=== PATIENT | female | born 1995 | race Caucasian/White ===

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

== ENCOUNTER 2017-06-15 19:32 | Emergency (ER) | payer OTHER ==
[2017-06-15 22:10] VITALS: BP 122/79
--- NOTE | 2017-06-16 01:48 | ED ---
Laceration/Wound HPI - HPI Summary HPI Summary: Patient presents to the ED with a laceration to the left thumb approximately 1 hour prior to arrival with a kitchen knife while cutting yams. Last tetanus 6 years ago. The area is approx 1.5cm length, .4cm deep and no width. Bleeding is controlled at arrival. Denies numness, tingling or temperature changes. The area has slight discoloration. Denies blood thinners. - History of Current Complaint Stated Complaint: LEFT THUMB LAC Time Seen by Provider: 06/15/17 20:02 Hx Obtained From: Patient Mechanism of Injury: Sharp/Blunt Trauma Onset/Duration: Sudden Onset Alleviating: Compression Timing: Constant Onset Severity: Mild Current Severity: None Pain Intensity: 0 Pain Scale Used: 0-10 Numeric Associated Signs & Symptoms: Negative - Allergy/Home Medications Allergies/Adverse Reactions: Allergies Allergy/AdvReac Type Severity Reaction Status Date / Time No Known Allergies Allergy Verified 06/15/17 20:31 PMH/Surg Hx/FS Hx/Imm Hx Previously Healthy: Yes Endocrine/Hematology History: Reports: Hx Diabetes - type I Sensory History: Denies: Hx Legally Blind Opthamlomology History: Denies: Hx Legally Blind - Immunization History Hx Pertussis Vaccination: No Immunizations Up to Date: Unable to Obtain/Confirm Infectious Disease History: No Infectious Disease History: Denies: Traveled Outside the [place] in Last 30 Days - Family History Known Family History: Positive: Cardiac Disease, Diabetes Negative: Hypertension - Social History Occupation: Student Lives: With Family Alcohol Use: Occasionally Hx Substance Use: No Substance Use Type: Reports: None Hx Tobacco Use: No Smoking Status (MU): Never Smoked Tobacco Review of Systems Constitutional: Negative Eyes: Negative Cardiovascular: Negative Respiratory: Negative Positive: no symptoms reported, see HPI Musculoskeletal: Negative Positive: Other - laceration to the distal tip of the left thumb Neurological: Negative Psychological: Normal All Other Systems Reviewed And Are Negative: Yes Physical Exam Triage Information Reviewed: Yes Vital Signs On Initial Exam: Initial Vitals Temp Pulse Resp BP Pulse Ox 97.8 F 112 16 133/89 99 06/15/17 19:35 06/15/17 19:35 06/15/17 19:35 06/15/17 19:35 06/15/17 19:35 Vital Signs Reviewed: Yes Appearance: Positive: Well-Appearing, Well-Nourished Skin: Positive: Warm, Skin Color Reflects Adequate Perfusion, Other - laceration to the distal tip of the left thumb Head/Face: Positive: Normal Head/Face Inspection Eyes: Positive: EOMI, XIOMARA, Conjunctiva Clear Neck: Positive: Supple, No Lymphadenopathy Respiratory/Lung Sounds: Positive: Clear to Auscultation, Breath Sounds Present Cardiovascular: Positive: Normal, RRR, Pulses are Symmetrical in both Upper and Lower Extremities Musculoskeletal: Positive: Normal, Strength/ROM Intact Neurological: Positive: Normal, Sensory/Motor Intact, Alert, Oriented to Person Place, Time Psychiatric: Positive: Normal AVPU Assessment: Alert - Enriqueta Coma Scale Coma Scale Total: 15 Diagnostics - Vital Signs Vital Signs Temp Pulse Resp BP Pulse Ox 06/15/17 22:09 98.1 F 70 18 122/79 100 06/15/17 19:35 97.8 F 112 16 133/89 99 - Laboratory Lab Statement: Any lab studies that have been ordered have been reviewed, and results considered in the medical decision making process. Laceration Repair Course/Dx - Course Course Of Treatment: laceration to the distal tip of the left thumb. discussed treatment options. Applied adhesive glue to the thumb - 2 layers. steri strips placed. Tetanus not updated d/t recent administration 6 years ago. Bandage wrapped. OK for discharge. - Differential Dx Differental Diagnoses: Laceration - Clinical Impression Provider Diagnoses: Laceration of thumb with damage to nail Discharge - Discharge Plan Condition: Stable Disposition: HOME Patient Education Materials: Skin Adhesive Care (ED), Steristrips (ED) Referrals: Non Staff,Doctor [Primary Care Provider] - Additional Instructions: Continue with steri strips for at least 5 days Keep the area covered x 2-3 days, then leave open to air As the steri strips start to fall apart, you may apply more
== END 2017-06-15 22:09 | disposition home or self-care (01) ==
LOC: ED 19:32
DX: S61.012A Laceration without foreign body of left thumb without damage to nail, initial encounter (principal); W26.0XXA Contact with knife, initial encounter; Y93.G1 Activity, food preparation and clean up; Y92.000 Kitchen of unspecified non-institutional (private) residence as the place of occurrence of the external cause; E10.8 Type 1 diabetes mellitus with unspecified complications
CPT/HCPCS: 99281

== ENCOUNTER 2018-12-24 01:14 | Emergency (ER) | payer OTHER ==
[2018-12-24 01:54] LABS: Urine Appearance Cloudy; Urine Bacteria Absent (Absent); Urine Bilirubin Negative (Negative); Urine Blood 3+ (Negative); Urine Glucose Negative (Negative); Urine Ketones Negative (Negative); Urine Nitrite Negative (Negative); Urine Protein 2+(100 mg/dL) (Negative); Urine Red Blood Cell Absent (Absent); Urine Specific Gravity 1.001 (1.010-1.030); Urine Urobilinogen Negative (Negative); Urine White Blood Cell 3+(>20/hpf) (Absent)
[2018-12-24] MEDS ORDERED: Acetaminophen TAB* 325 MG PO ONE (01:55)
[2018-12-24 01:57] LABS: Urine Color Red
[2018-12-24] MEDS ORDERED: Nitrofurantoin Macrocrystals* 100 MG CAP PO ONE (02:03)
[2018-12-24] MEDS ORDERED: Phenazopyridine TAB* 100 MG PO ONE (02:03)
--- NOTE | 2018-12-24 02:04 | ED ---
GI/ HPI - HPI Summary HPI Summary: 23-year-old female presents with dysuria hematuria today. She states she has history of the UTIs but has never had hematuria. No flank pain. No fevers. No nausea and vomiting. Denies any abnormal vaginal discharge. She is not blood thinners. She is a diabetic type I but her sugars have been normal. She states that she has had some clots in her urine. She admits to urgency and frequency. States feels similar to when she had UTIs the past. Has not had any UTI in a year. - History of Current Complaint Chief Complaint: EDUrogenitalProblems Time Seen by Provider: 12/24/18 01:31 Stated Complaint: PEEING BLOOD PER PT. Pain Intensity: 2 - Allergy/Home Medications Allergies/Adverse Reactions: Allergies Allergy/AdvReac Type Severity Reaction Status Date / Time No Known Allergies Allergy Verified 12/24/18 01:20 Home Medications: Home Medications Insulin ASPART (NF) [Novolog (NF)] 100 unit SC QID 12/24/18 [History Confirmed 12/24/18] Insulin Glargine,Hum.rec.anlog [Basaglar Kwikpen U-100] 28 units SUBCUT BEDTIME 12/24/18 [History Confirmed 12/24/18] PMH/Surg Hx/FS Hx/Imm Hx Endocrine/Hematology History: Reports: Hx Diabetes - type I Respiratory History: Denies: Hx Asthma Sensory History: Denies: Hx Legally Blind Opthamlomology History: Denies: Hx Legally Blind Infectious Disease History: No Infectious Disease History: Denies: Traveled Outside the [place] in Last 30 Days - Family History Known Family History: Positive: Cardiac Disease, Diabetes Negative: Hypertension - Social History Alcohol Use: Occasionally Hx Substance Use: No Substance Use Type: Reports: None Hx Tobacco Use: No Smoking Status (MU): Never Smoked Tobacco Review of Systems Negative: Fever Negative: Chest Pain Negative: Shortness Of Breath Negative: Vomiting Positive: dysuria, frequency, hematuria. Negative: flank pain All Other Systems Reviewed And Are Negative: Yes Physical Exam Triage Information Reviewed: Yes Vital Signs On Initial Exam: Initial Vitals Temp Pulse Resp BP Pulse Ox 98.4 F 84 15 130/89 99 12/24/18 01:18 12/24/18 01:18 12/24/18 01:18 12/24/18 01:18 12/24/18 01:18 Vital Signs Reviewed: Yes Appearance: Positive: Well-Appearing Skin: Positive: Warm, Dry Head/Face: Positive: Normal Head/Face Inspection Eyes: Positive: Normal, Conjunctiva Clear ENT: Positive: Pharynx normal Respiratory/Lung Sounds: Positive: Clear to Auscultation, Breath Sounds Present Cardiovascular: Positive: Normal, RRR Abdomen Description: Positive: Other: - mild suprapubic tenderness. Negative: CVA Tenderness (R), CVA Tenderness (L) Bowel Sounds: Positive: Present Musculoskeletal: Positive: Normal Neurological: Positive: Normal Psychiatric: Positive: Normal Diagnostics - Vital Signs Vital Signs Temp Pulse Resp BP Pulse Ox 12/24/18 01:18 98.4 F 84 15 130/89 99 - Laboratory Lab Results: Lab Results 12/24/18 Range/Units 01:40 Urine Color Red A Urine Appearance Cloudy Urine pH 7.0 (5-9) Ur Specific [place] 1.001 L (1.010-1.030) Urine Protein 2+(100 mg/dl) A (Negative) Urine Ketones Negative (Negative) Urine Blood 3+ A (Negative) Urine Nitrate Negative (Negative) Urine Bilirubin Negative (Negative) Urine Urobilinogen Negative (Negative) Ur Leukocyte Esterase 3+ A (Negative) Urine WBC (Auto) 3+(>20/hpf) A (Absent) Urine RBC (Auto) Absent (Absent) Urine Bacteria Absent (Absent) Urine Glucose Negative (Negative) Lab Statement: Any lab studies that have been ordered have been reviewed, and results considered in the medical decision making process. GIGU Course/Dx - Course Course Of Treatment: 23-year-old female presents with dysuria hematuria today. She states she has history of the UTIs but has never had hematuria. No flank pain. No fevers. No nausea and vomiting. Denies any abnormal vaginal discharge. She is not blood thinners. She is a diabetic type I but her sugars have been normal. She states that she has had some clots in her urine. She admits to urgency and frequency. States feels similar to when she had UTIs the past. Has not had any UTI in a year. On exam mild suprapubic tenderness. Negative CVA tenderness. Afebrile. Urine shows blood and leuk esterase. We' ll treat her UTI with Macrobid. Gave her Pyridium for the pain. Patient understand and agrees plan. - Diagnoses Differential Diagnoses - Female: Pyelonephritis, Urinary Tract Infection, Ureteral Calculi Provider Diagnoses: UTI (urinary tract infection) Discharge - Sign-Out/Discharge Documenting (check all that apply): Patient Departure Patient Received Moderate/Deep Sedation with Procedure: No - Discharge Plan Condition: Good Disposition: HOME Prescriptions: Nitrofurantoin Monohyd/M-Cryst [Macrobid 100 mg Capsule] 100 mg PO BID #14 cap Phenazopyridine 200 mg (NF) [Pyridium 200 MG tab *] 200 mg PO TID #5 tab Patient Education Materials: Urinary Tract Infection in Women (ED) Referrals: Non Staff,Doctor [Medical Doctor] - Additional Instructions: Take Macrobid twice a day for 7days, first dose given in ED Take pyridium three times a day with food for 2 days, first dose given in ED Drink plenty of fluids Follow up with primary in 7 days Return to ED if develop fever, flank pain, or vomiting or any new or worsening symptoms - Billing Disposition and Condition Condition: GOOD Disposition: Home
[2018-12-24 02:21] VITALS: BP 0/0
== END 2018-12-24 02:20 | disposition home or self-care (01) ==
LOC: ED 01:14
DX: N39.0 Urinary tract infection, site not specified (principal); R31.9 Hematuria, unspecified; Z87.440 Personal history of urinary (tract) infections; E10.9 Type 1 diabetes mellitus without complications; Z79.4 Long term (current) use of insulin
CPT/HCPCS: 81003; 81015; 87086; 99284; A9270-GY